=== PATIENT | male | born 1950 | race African-American/Black ===

== ENCOUNTER 2017-04-20 06:05 | Day surgery (SDC) | payer OTHER ==
[2017-04-18 13:22] VITALS: BMI 25.0
--- NOTE | 2017-04-20 08:13 | HP ---
History & Physical Update - History History: No Change - Physical Physical: No Change - Assessment Assessment: No Change - Plan Plan: No Change
[2017-04-20] MEDS ORDERED: MIDAZOLAM HCL 2 MG/2 ML SINGLE DOSE VIAL ONE (08:17)
[2017-04-20] MEDS ORDERED: LIDOCAINE HCL/PF 2% SDV 5ML VIAL ONE (08:20)
[2017-04-20] MEDS ORDERED: ROCURONIUM BROMIDE 50 MG/5 ML VIAL ONE (08:20)
[2017-04-20] MEDS ORDERED: PROPOFOL 20 ML ONE (08:20)
[2017-04-20] MEDS ORDERED: ceFAZolin SODIUM 1 GM VIAL IVPB ONE (08:23)
[2017-04-20] MEDS ORDERED: ceFAZolin SODIUM 1 GM VIAL ONE (08:35)
[2017-04-20] MEDS ORDERED: BUPIVACAINE HCL/PF 0.5% (5MG/ML) 10 ML VIAL ONE (08:38)
[2017-04-20] MEDS ORDERED: DEXAMETHASONE SOD PHOSPHATE 4 MG/1 ML VIAL ONE (08:39)
[2017-04-20] MEDS ORDERED: KETOROLAC TROMETHAMINE 30 MG/1 ML VIAL ONE (08:39)
[2017-04-20] MEDS ORDERED: LIDOCAINE HCL 2% JELLY (5 ML/TUBE) ONE (08:39)
[2017-04-20] MEDS ORDERED: BUPIVACAINE HCL/PF 0.5% (5MG/ML) 10 ML VIAL IJ ONE (08:47)
[2017-04-20] MEDS ORDERED: ONDANSETRON 4 MG/2 ML VIAL IVPUSH PRN (10:12)
[2017-04-20] MEDS ORDERED: oxyCODONE HCL 5 MG TABLET PO PRN (10:12)
[2017-04-20] MEDS ORDERED: PROMETHAZINE HCL 25 MG/1 ML VIAL IVPUSH PRN (10:12)
[2017-04-20] MEDS ORDERED: LACTATED RINGERS SOLUTION 1,000 ML IV SCH (10:15)
--- NOTE | 2017-04-20 12:34 | OP ---
Operative Note - Note: Operative Date: 04/20/17 Pre-Operative Diagnosis: VENTRAL HERNIA Operation: ROBOTIC VENTRAL HERNIA REPAIR WITH MESH Findings: UMBILICAL AND INFRAUMBILICAL HERNIAS Post-Operative Diagnosis: Other (MULTIPLE VENTRAL HERNIAS) Surgeon: Cuco Lynn Rose Grading Supervisor: Rupal Shearer Anesthesia: General Estimated Blood Loss (mls): 3 Operative Report Dictated: Yes
--- NOTE | 2017-04-20 13:28 | OP ---
DATE OF OPERATION: 04/20/2017 PROCEDURE: Robotic-assisted laparoscopic ventral hernia repair with mesh. PREOPERATIVE DIAGNOSIS: Ventral hernia. POSTOPERATIVE DIAGNOSIS: Umbilical and infraumbilical hernias with diastasis recti. SURGEON: Cuco Lynn MD HAND UMBRELLA TIPPER: HEIDY Robertson ANESTHESIA: General endotracheal. FINDINGS AND PROCEDURE: This is a 66-year-old male who presented initially with abdominal discomfort and bulging of the upper supraumbilical midline 1 year prior. At that time, on physical exam patient was only deemed to have diastasis recti. However, the following year patient returned for reevaluation of the abdominal bulge. This time, patient has a supraumbilical defect with larger diastasis recti, so patient was advised robotic or minimally invasive hernia repair. Consent was obtained after discussing the risks, benefits, and alternatives to the procedure. Patient was brought to the operating room and placed in supine position. General endotracheal anesthesia was administered. A roll was placed under the patient' s left flank and the left arm was tucked to the side. The abdomen was prepped and draped in the usual sterile fashion. Using 0.5% Marcaine, local anesthesia was administered to the proposed incision site. The peritoneal cavity was entered using the Veress needle technique via an 8-mm left subcostal incision behind the anterior axillary line. Pneumoperitoneum was established. An 8-mm port was inserted into the subcostal incision. Then, the 3D 30-degree laparoscope was inserted and the peritoneal cavity was carefully inspected. It was noted to be free of inadvertent injury. The posterior abdominal wall was inspected and was noted to have umbilical hernia and supraumbilical diastasis recti. Two 8-mm ports were inserted at the left flank and the anterior axillary line 8 mm away from each other, 1 at the level of the umbilicus and 1 at the left lower quadrant. The 3D scope was then positioned and transferred to the middle port. The target organ was set and the robotic arms were docked. The fenestrated bipolar was placed into the left lower quadrant port and the EndoWrist ursula was connected to monopolar cautery, was inserted in the left subcostal port. The undersigned then scrubbed out to commence the console part of the procedure. The parietal peritoneum which was about 7 mm wide was scored and a preperitoneal pocket was created. This pocket was about 14 x 8 mm in size. This was done using the bipolar for traction and the EndoWrist ursula for the sharp dissection. The hernia sac was also reduced from the umbilical hernia. The umbilical hernia was about 3 cm in its widest diameter. The dissection was initially carried up towards the falciform ligament and down towards the linea semicircularis. During the process of the dissection, 2 small infraumbilical defects were noted, 1 about 2 cm from the umbilicus and 1 larger which was about 2 cm, about 4 cm below the umbilicus containing preperitoneal fat. The defects were closed with continuous V-Loc No. 1 nonabsorbable sutures, also partially apposing the diastasis recti in the epigastric region. After the primary closure was deemed satisfactory, an 8 x 12-cm ProGrip mesh was self-anchored to the posterior abdominal wall, covering all the hernia defects. The parietal peritoneum was then tucked back to the posterior abdominal wall with running V-Loc 2-0 absorbable sutures. The midline defect was also closed with 1 figure-of-8 V-Loc 2-0 suture. After the procedure was deemed satisfactory, the sutures with their needles were removed. The 2-0 V-Loc absorbable suture needle was noted to have been dislodged. Initial search for the needle proved to be futile. An x-ray of the abdomen showed that the needle was noted to be in the right lower quadrant, so the robotic arms were undocked and now the left subcostal port was changed to an 11-mm port. Search of the needle again was done at the right lower quadrant and this time the needle was found. The needle was then grasped with the needle cart driver and extracted via the larger left subcostal port. This then ended the entire procedure. The pneumoperitoneum was evacuated and the ports were removed. The wounds were closed with subcuticular Biosyn 4-0 sutures reinforced with Dermabond. The patient was successfully extubated and transferred to the postanesthesia care unit in satisfactory condition. Estimated blood loss was about 3 mL. Wound class clean. The patient received 2 g of Ancef prior to the start of the procedure. Dora [id number] [facility]
[2017-04-20 15:09] VITALS: TEMP 98.1
[2017-04-20 16:20] VITALS: BP 130/80; PULSE 88
--- NOTE | 2017-04-20 17:11 | SURG ---
Surgery Shuttle Threader Note Shuttle Threader: Rupal Shearer PA-C Date of Service: 04/20/17 Diagnosis: VENTRAL HERNIA Procedure: ROBOTIC VENTRAL HERNIA REPAIR WITH MESH I was present for the entirety of the operative procedure. For further detail, please refer to operative report. Visit type - Case Type Case Type: Scheduled Admission - Emergency Emergency Visit: No - New patient This patient is new to me today: Yes Date on this admission: 04/20/17 - Critical Care Critical Care patient: No
== END 2017-04-20 16:19 | disposition home or self-care (01) ==
LOC: JASU-SURG 06:05
PROVIDERS: ATTEND Surgery
PROC: 8E0W4CZ Robotic Assisted Procedure of Trunk Region, Percutaneous Endoscopic Approach (ICD-10-PCS; 2017-04-20)
PROC: 0WUF4JZ Supplement Abdominal Wall with Synthetic Substitute, Percutaneous Endoscopic Approach (ICD-10-PCS; principal; 2017-04-20 08:00)
DX: K43.9 Ventral hernia without obstruction or gangrene (principal); Q79.59 Other congenital malformations of abdominal wall
CPT/HCPCS: 49652; S2900; 74000-TC; 74190-TC; 76000-TC; 94760

== ENCOUNTER 2020-04-13 10:36 | Observation (INO) | payer OTHER ==
--- NOTE | 2020-04-13 11:08 | PDOC ---
History of Present Illness - General Chief Complaint: Chest Pain Stated Complaint: CHEST PAIN Time Seen by Provider: 04/13/20 11:07 - History of Present Illness Initial Comments: 69 YOM w/ htn presents with chest pain for 3 days. Patient reports pain is located over left chest, 7-9/10 in intensity, squeezing in quality, no radiat ion, nothing makes it better or worse, took baby aspirin for it last night without improvement, never had pain like this before. Endorses nausea, attempting to vomit, denies fever, chills, recent travel. Denies SOB. 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 Constitutional: No Weight Change, No Fever, No Chills, No Night Sweats, No Fatigue, No Malaise ENT/Mouth: No Hearing Changes, No Ear Pain, No Nasal Congestion, No Sinus Pain, No Hoarseness, No sore throat, No Rhinorrhea, No Swallowing Difficulty Eyes: No Eye Pain, No Swelling, No Redness, No Foreign Body, No Discharge, No Vision Changes Cardiovascular: No Chest Pain, No SOB, No PND, No Dyspnea on Exertion, No Orthopnea, No Claudication, No Edema, No Palpitations Respiratory: No Cough, No Sputum, No Wheezing, No Smoke Exposure, No Dyspnea Gastrointestinal: No Nausea, No Vomiting, No Diarrhea, No Constipation, No Pain, No Heartburn, No Anorexia, No Dysphagia, No Hematochezia, No Melena, No Flatulence, No Jaundice Genitourinary: No Dysmenorrhea, No DUB, No Dyspareunia, No Dysuria, No Urinary Frequency, No Hematuria, No Urinary Incontinence, No Urgency, No Flank Pain, No Urinary Flow Changes, No Hesitancy Musculoskeletal: No Arthralgias, No Myalgias, No Joint Swelling, No Joint Stiffness, No Back Pain, No Neck Pain, No Injury History Skin: No Skin Lesions, No Pruritis, No Hair Changes, No Breast/Skin Changes, No Nipple Discharge Neuro: No Weakness, No Numbness, No Paresthesias, No Loss of Consciousness, No Syncope, No Dizziness, No Headache, No Coordination Changes, No Recent Falls Psych: No Anxiety/Panic, No Depression, No Insomnia, No Personality Changes, No Delusions, No Rumination, No SI/HI/AH/VH, No Social Issues, No Memory Changes, No Violence/Abuse Hx., No Eating Concerns Heme/Lymph: No Bruising, No Bleeding, No Transfusions History, No Lymphadenopathy Endocrine: No Polyuria, No Polydipsia, No Temperature Intolerance 04/13/20 11:46 04/13/20 11:49 Past History - Medical History Allergies/Adverse Reactions: Allergies Allergy/AdvReac Type Severity Reaction Status Date / Time No Known Allergies Allergy Verified 04/13/20 10:41 Home Medications: Ambulatory Orders Lisinopril 10 mg PO DAILY 04/13/20 Aspirin [ASA -] 81 mg PO DAILY #30 tab.chew 04/15/20 Lisinopril [Prinivil] 10 mg PO DAILY tablet 04/15/20 Anemia: No Asthma: No Cancer: No Cardiac Disorders: No CVA: No COPD: No CHF: No Dementia: No Diabetes: No GI Disorders: No Disorders: Yes HTN: Yes Hypercholesterolemia: No Liver Disease: No Seizures: No Thyroid Disease: No - Immunization History Immunization Up to Date: Yes - Psycho-Social/Smoking History Smoking History: Never smoked Have you smoked in the past 12 months: No - Substance Abuse Hx (Audit-C & DAST Scrn) How often the patient has a drink containing alcohol: Never Score: In Men: 4 or > Positive; In Women: 3 or > Positive: 0 Screen Result (Pos requires Nsg. Audit-10AR): Negative In the last yr the pt used illegal drug/Rx for NonMed reason: No Score: Yes response is considered Positive: 0 Screen Result (Positive result requires Nsg. DAST-10): Negative *Physical Exam - Vital Signs Last Vital Signs Temp Pulse Resp BP Pulse Ox 97.6 F 75 20 130/76 100 04/13/20 10:41 04/13/20 10:41 04/13/20 10:41 04/13/20 10:41 04/13/20 10:41 - Physical Exam General Appearance: Yes: Nourished, Appropriately Dressed, Mild Distress HEENT: positive: EOMI, JUNI, Normal ENT Inspection, Normal Voice, Symmetrical, TMs Normal, Pharynx Normal, Other (patient has decreased visual acuity bilaterally) Neck: positive: Trachea midline, Normal Thyroid Respiratory/Chest: positive: Lungs Clear, Normal Breath Sounds Cardiovascular: positive: Regular Rhythm, Regular Rate, S1, S2 Gastrointestinal/Abdominal: positive: Normal Bowel Sounds, Tender, Flat, Soft, Tenderness (patient has ttp in epigastrum) Musculoskeletal: positive: Normal Inspection, CVA Tenderness Extremity: positive: Normal Capillary Refill Integumentary: positive: Normal Color, Dry, Warm 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: 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: 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 NML intact, Fully Oriented, Alert, Normal Mood/Affect, Normal Response, Motor Strength 11/10 ED Treatment Course - LABORATORY CBC & Chemistry Diagram: 04/14/20 06:30 04/14/20 06:30 Medical Decision Making - Medical Decision Making 69 YOM with htn new onset chest pain - vitals on arrival are wnl - exam reveals ttp in epigastrum, cp not reproducible - ddx: acs, pneumonia, covid, pancreatitis - plan: CBC, CMP, cardiac profile, ekg, cxr, 81 mg aspirin, reassess reassess - troponin 1 negative - cxr negative 04/13/20 13:00 04/13/20 17:06 Troponin 2 negative Given nature of patients chest pain, and first time, and risk factors will admit for tele. Heart Score is 4 Discharge - Discharge Information Problems reviewed: Yes Clinical Impression/Diagnosis: Chest pain Qualifiers: Chest pain type: unspecified Qualified Code(s): R07.9 - Chest pain, unspecified Condition: Good Disposition: HOME - Follow up/Referral - Patient Discharge Instructions - Post Discharge Activity
--- NOTE | 2020-04-13 11:23 | PDOC ---
Attending Attestation - Resident Resident Name: Khanh Amaral - ED Attending Attestation I have performed the following: I have examined & evaluated the patient, The case was reviewed & discussed with the resident, I agree w/resident's findings & plan, Exceptions are as noted - HPI HPI: 69 yo M history HTN presents with 3 day history of intermittent L-sided chest pain, nonradiating. Describes pain as squeezing. It waxes and wanes, currently pain-free. Denies SOB, cough, fever, vomiting. +Nausea. 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 - Physicial Exam PE: GENERAL: Awake, alert, and fully oriented, in no acute distress HEAD: No signs of trauma EYES: PERRLA, EOMI, sclera anicteric, conjunctiva clear ENT: Auricles normal inspection, hearing grossly normal, nares patent, oropharynx clear without exudates. Moist mucosa NECK: Normal ROM, supple, no lymphadenopathy, JVD, or masses LUNGS: Breath sounds equal, clear to auscultation bilaterally. No wheezes, and no crackles HEART: Regular rate and rhythm, normal S1 and S2, no murmurs, rubs or gallops ABDOMEN: Soft, +distension, nontender, normoactive bowel sounds. No guarding, no rebound. No masses EXTREMITIES: Normal range of motion, no edema. No clubbing or cyanosis. No cords, erythema, or tenderness NEUROLOGICAL: Cranial nerves II through XII grossly intact. Normal speech, normal gait. Motor and sensation intact SKIN: Warm, dry, normal turgor, no rashes or lesions noted. - Medical Decision Making Pt with L-sided chest pain, with cardiac risk factors. Will send labs, get CXR. Likely admission. Heart Score/ECG Review - ECG Impressions Comment:: EKG read 11:02- NSR 79 bpm, no acute ST/T changes Discharge - Discharge Information Problems reviewed: Yes Clinical Impression/Diagnosis: Chest pain Qualifiers: Chest pain type: unspecified Qualified Code(s): R07.9 - Chest pain, unspecified Condition: Stable - Follow up/Referral - Patient Discharge Instructions - Post Discharge Activity
[2020-04-13] MEDS ORDERED: ASPIRIN 81 MG CHEWABLE TABLETS PO STA (11:48)
[2020-04-13] MEDS ORDERED: ASPIRIN 81 MG CHEWABLE TABLETS ONE (11:56)
[2020-04-13 12:08] LABS: BASO % 0.6 % (0-2.0); EOS % 6.4 % (0-4.5); HEMATOCRIT 35.8 % (35.4-49); HEMOGLOBIN 11.9 GM/dL (11.7-16.9); LYMPH % 28.3 % (8-40); MCH 25.2 pg (25.7-33.7); MCHC 33.3 g/dl (32.0-35.9); MEAN CELL VOLUME 75.7 fl (80-96); MONO % 9.9 % (3.8-10.2); NEUT % 54.8 % (42.8-82.8); PLATELET COUNT 286 K/MM3 (134-434); RBC 4.73 M/mm3 (4.00-5.60); RDW 15.3 % (11.9-15.9); WHITE BLOOD COUNT 5.4 K/mm3 (4.0-10.0)
[2020-04-13 12:40] LABS: ALBUMIN 3.6 g/dl (3.4-5.0); ALK PHOS 62 U/L (45-117); ANION GAP 4 MMOL/L (8-16); BILIRUBIN,TOTAL 0.3 mg/dL (0.2-1); CALCIUM 8.5 mg/dL (8.5-10.1); CHLORIDE 111 mmol/L (98-107); CO2 29 mmol/L (21-32); CREATININE 1.7 mg/dL (0.55-1.3); GLUCOSE,RANDOM 92 mg/dL (74-106); LIPASE 169 U/L (73-393); POTASSIUM 4.5 mmol/L (3.5-5.1); SGOT/AST 19 U/L (15-37); SGPT/ALT 18 U/L (13-61); SODIUM 144 mmol/L (136-145); TOT PROT 6.8 g/dl (6.4-8.2)
--- NOTE | 2020-04-13 13:39 | EKG ---
Test Reason : Blood Pressure : / mmHG Vent. Rate : 079 BPM Atrial Rate : 079 BPM P-R Int : 170 ms QRS Dur : 092 ms QT Int : 402 ms P-R-T Axes : 042 013 017 degrees QTc Int : 460 ms NORMAL SINUS RHYTHM NORMAL ECG NO PREVIOUS ECGS AVAILABLE Confirmed by Ata Newberry MD ([id number]) on 04/13/2020 1:39:08 PM Referred By: Confirmed By:Ata Newberry MD
--- OUTSIDE RECORDS SUMMARY | 2020-04-13 18:48 | XMS ---
:1950 Author Organization [facility] Support Name Relationship Address Phone KERLINE Unavailable [address] [place] [address] CAROLINA SORTO DAUGHTER [address] [place] [address] Re-disclosure Warning The records that you are about to access may contain information from federally- assisted alcohol or drug abuse programs. If such information is present, then the following federally mandated warning applies: This information has been disclosed to you from records protected by federal confidentiality rules (42 CFR part 2). The federal rules prohibit you from making any further disclosure of this information unless further disclosure is expressly permitted by the written consent of the person to whom it pertains or as otherwise permitted by 42 CFR part 2. A general authorization for the release of medical or other information is NOT sufficient for this purpose. The Federal rules restrict any use of the information to criminally investigate or prosecute any alcohol or drug abuse patient.The records that you are about to access may contain highly sensitive health information, the redisclosure of which is protected by Article 27-F of the [facility] Public Health law. If you continue you may haveaccess to information: Regarding HIV / AIDS; Provided by facilities licensed or operated by the [facility] Office of Mental Health; or Provided by the [facility] Office for People With Developmental Disabilities. If such information is present, then the following [facility] mandated warning applies: This information has been disclosed to you from confidential records which are protected by state law. State law prohibits you from making any further disclosure of this information without the specific written consent of the person to whom it pertains, or as otherwise permitted by law. Any unauthorized further disclosure in violation of state law may result in a fine or usp sentence or both. A general authorization for the release of medical or other information is NOT sufficient authorization for further disclosure. Insurance Providers Payer name Policy type Policy ID Covered Covered alliance party's Policy P ariel / Coverage alliance party ID relationship to Haddad Inf ormation type haddad MEDICARE [id number] SP [id number] [employer] HMO [id number] SP [id number] Results ID Date Data Source [id number] 12/24/2019 12:00:00 AM EDT [facility] Name Value Range Interpretation Code Description Data Kari rce(s) Supporting Document(s ) 2018-nCoV [facility] RNA XXX JAEL+probe- Imp This lab was ordered by [facility] and reported by [employer]. ID Date Data Source [id number] 11/24/2019 12:00:00 AM EDT [facility] Name Value Range Interpretation Code Description Data Kari rce(s) Supporting Document(s ) 2018-nCoV [facility] RNA XXX JAEL+probe- Imp This lab was ordered by [facility] and reported by [employer] Procedure
[2020-04-13 19:54] LABS: URINE APPEARANCE CLEAR; URINE BILIRUBIN NEGATIVE (NEGATIVE); URINE COLOR YELLOW; URINE GLUCOSE (UA) NEGATIVE (NEGATIVE); URINE KETONE NEGATIVE (NEGATIVE); URINE LEUK ESTERASE NEGATIVE (NEGATIVE); URINE NITRITE NEGATIVE (NEGATIVE); URINE PROTEIN NEGATIVE (NEGATIVE); URINE UROBILINOGEN 0.2 mg/dL (0.2-1.0)
[2020-04-14 04:54] VITALS: BMI 24.2
[2020-04-14 07:38] LABS: HEMATOCRIT 38.2 % (35.4-49); HEMOGLOBIN 12.7 GM/dL (11.7-16.9); MCH 25.2 pg (25.7-33.7); MCHC 33.3 g/dl (32.0-35.9); MEAN CELL VOLUME 75.9 fl (80-96); PLATELET COUNT 298 K/MM3 (134-434); RBC 5.04 M/mm3 (4.00-5.60); RDW 15.4 % (11.9-15.9); WHITE BLOOD COUNT 5.3 K/mm3 (4.0-10.0)
[2020-04-14 07:48] LABS: ALBUMIN 3.9 g/dl (3.4-5.0); BILIRUBIN,TOTAL 0.5 mg/dL (0.2-1); BLOOD UREA NITROGEN 12.6 mg/dL (7-18); CALCIUM 9.1 mg/dL (8.5-10.1); CREATININE 1.4 mg/dL (0.55-1.3); TOT PROT 7.3 g/dl (6.4-8.2)
--- NOTE | 2020-04-14 10:18 | CON.CARD ---
Consult Consult Specialty:: Cardiology - History of Present Illness History of Present Illness: 69 YOM w/ htn presents with chest pain for 3 days. Patient reports pain is located over left chest, 7-9/10 in intensity, squeezing in quality, no radiation, nothing makes it better or worse, took baby aspirin for it last night without improvement, never had pain like this before. Endorses nausea, attempting to vomit, denies fever, chills, recent travel. Denies SOB. 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 - History Source History Provided By: Patient, Medical Record - Alcohol/Substance Use Hx Alcohol Use: Yes (occas) - Smoking History Smoking history: Never smoked Have you smoked in the past 12 months: No Home Medications - Allergies Allergies/Adverse Reactions: Allergies Allergy/AdvReac Type Severity Reaction Status Date / Time No Known Allergies Allergy Verified 04/13/20 10:41 - Home Medications Home Medications: Ambulatory Orders Lisinopril 10 mg PO DAILY 04/13/20 Review of Systems - Review of Systems Constitutional: reports: No Symptoms Eyes: reports: No Symptoms HENT: reports: No Symptoms Neck: reports: No Symptoms Cardiovascular: reports: Chest Pain Respiratory: reports: No Symptoms Gastrointestinal: reports: No Symptoms Genitourinary: reports: No Symptoms Breasts: reports: No Symptoms Reported Musculoskeletal: reports: No Symptoms Integumentary: reports: No Symptoms Neurological: reports: No Symptoms Endocrine: reports: No Symptoms Hematology/Lymphatic: reports: No Symptoms Psychiatric: reports: No Symptoms Vital Signs: Vital Signs Temperature 98.1 F 04/14/20 04:30 Pulse Rate 60 04/14/20 08:56 Respiratory Rate 16 04/14/20 08:56 Blood Pressure 141/88 04/14/20 08:56 O2 Sat by Pulse Oximetry (%) 96 04/14/20 08:56 Constitutional: Yes: Well Nourished, No Distress, Calm Eyes: Yes: WNL, Conjunctiva Clear, EOM Intact HENT: Yes: WNL, Atraumatic, Normocephalic Neck: Yes: WNL, Supple, Trachea Midline Respiratory: Yes: WNL, Regular, CTA Bilaterally Gastrointestinal: Yes: WNL, Normal Bowel Sounds Renal/: Yes: WNL Cardiovascular: Yes: WNL, Regular Rate and Rhythm Musculoskeletal: Yes: WNL Extremities: Yes: WNL Integumentary: Yes: WNL Neurological: Yes: WNL, Alert, Oriented ...Motor Strength: WNL Psychiatric: Yes: WNL, Alert, Oriented - Other Data Labs, Other Data: CBC, BMP 04/14/20 06:30 04/14/20 06:30 Troponin, BNP 04/13/20 04/13/20 11:27 15:10 Troponin I < 0.02 < 0.02 Troponin, BNP 04/13/20 04/13/20 11:27 15:10 Troponin I < 0.02 < 0.02 Imaging - Results Chest X-ray: Image Reviewed (no i/e) EKG: Image Reviewed (sr wnl) Problem List - Problems (1) Chest pain Code(s): R07.9 - CHEST PAIN, UNSPECIFIED Qualifiers: Chest pain type: unspecified Qualified Code(s): R07.9 - Chest pain, unspecified Assessment/Plan 69 YOM w/ htn presents with chest pain for 3 days. Patient reports pain is located over left chest, 7-9/10 in intensity, squeezing in quality, no radiation, nothing makes it better or worse, took baby aspirin for it last night without improvement, never had pain like this before. Family hx CVA (brother in his 50s); pt does not know medical hx of lizz parents. HTN; now on lisinopril ECHO: normal LVEF; mild-moderate aortic regurgitation (AR) TNI < 0.02 x 2. TSH and lipid panel pending Rec: Control BP (pt reports being on nifedipine and ?metoprolol at home). F/u Lipids and TSH. Stress treadmill MIBI (pt reports having had non-nuclear stress test ? 2 yrs ago that was negative for ischemia). cc time 70 min
[2020-04-14] MEDS: LISINOPRIL 10 MG TABLET PO SCH (11:35)
--- NOTE | 2020-04-14 13:03 | ECHO ---
Version: 1 Name: CORAL SORTO Exam: Adult Echocardiogram Study Date: 04/14/2020, 11:50 AM Age: 69 Years MMode/2D Measurements & Calculations IVSd: 1.05 cm LVIDs: 2.9 cm LVIDd: 4.0 cm LVPWd: 1.08 cm ACS: 1.75 cm Ao root diam: 3.7 cm LVOT diam: 2.03 cm LA dimension: 2.8 cm Doppler Measurements & Calculations MV E max tyshawn: 41.5 cm/sec Med E/e': 7.9 MV A max tyshawn: 58.2 cm/sec Med Peak E' Tyshawn: 5.3 cm/sec MV E/A: 0.71 Lat E/e': 4.6 Lat Peak E' Tyshawn: 9.0 cm/sec Ao max P.0 mmHg NOEMY(I,D): 1.77 cm Ao mean P.8 mmHg LV V1 mean: 47.1 cm/sec Ao V2 max: 111.3 cm/sec LV V1 mean P.05 mmHg AI P1/2t: 779.9 msec TR max tyshawn: 190.7 cm/sec TR max P.6 mmHg Left Ventricle The left ventricular size, thickness and function are normal. Ejection Fraction = 65%. The transmitr al spectral Doppler flow pattern is suggestive of impaired LV relaxation. Right Ventricle The right ventricle is normal in size and function. Atria Normal left and right atrial size and function. Mitral Valve There is mild mitral annular calcification. There is trace mitral regurgitation. Tricuspid Valve The tricuspid valve is not well visualized, but is grossly normal. There is trace tricuspid regurgit ation. There was insufficient TR detected to calculate RV systolic pressure. Aortic Valve There is mild to moderate aortic sclerosis.;. No hemodynamically significant valvular aortic stenosi s. Mild to moderate aortic regurgitation. Pulmonic Valve The pulmonic valve is not well visualized. Great Vessels The aortic root is normal size. Pericardium/Pleura There is no pericardial effusion. Tech Comments TDS due to orientation of patient's heart. Patient thin and scanned supine. Summary Statements The left ventricular size, thickness and function are normal. The right ventricle is normal in size and function. Normal left and right atrial size and function. There is mild to moderate aortic sclerosis.; No hemodynamically significant valvular aortic stenosis . Mild to moderate aortic regurgitation. There is mild mitral annular calcification. There is trace mitral regurgitation. 04/14/2020, 1:02 MD Helga Farrell PM Ordering Physician: Denice Lanier Referring Physician: DENICE LANIER Performed By: Manjula Patel
--- NOTE | 2020-04-14 18:26 | HP ---
Admitting History and Physical - Smoking History Smoking history: Never smoked Have you smoked in the past 12 months: No - Alcohol/Substance Use Hx Alcohol Use: Yes (occas) Home Medications - Allergies Allergies/Adverse Reactions: Allergies Allergy/AdvReac Type Severity Reaction Status Date / Time No Known Allergies Allergy Verified 04/13/20 10:41 - Home Medications Home Medications: Ambulatory Orders Lisinopril 10 mg PO DAILY 04/13/20 Physical Examination Vital Signs: Vital Signs Temperature 98.6 F 04/14/20 14:02 Pulse Rate 64 04/14/20 14:02 Respiratory Rate 16 04/14/20 14:02 Blood Pressure 133/87 04/14/20 14:02 O2 Sat by Pulse Oximetry (%) 96 04/14/20 08:00 Labs: CBC, BMP 04/14/20 06:30 04/14/20 06:30 Problem List - Problems (1) Chest pain Assessment/Plan: CPK/troponin have been negative Check echo As per cardio ?stress test in am Code(s): R07.9 - CHEST PAIN, UNSPECIFIED Qualifiers: Chest pain type: unspecified Qualified Code(s): R07.9 - Chest pain, unspecified (2) HTN (hypertension) Assessment/Plan: Cont asa/lisinopril Code(s): I10 - ESSENTIAL (PRIMARY) HYPERTENSION
--- NOTE | 2020-04-15 07:28 | PN ---
Progress Note, Physician Chief Complaint: Pt A&ox3; asymptomatic presently History of Present Illness: Mr. Rand is a 69 YO black man w PMHx of HTN (on nifedipine and ? metoprolol at home), anxiety/?depression, who presents with chest pain for 3 days. Patient reports pain is located over left chest, 7-9/10 in intensity, squeezing in quality, no radiation, nothing makes it better or worse; lasted several minutes. He took baby aspirin for it the night before admission without improvement, never had pain like this before. Endorses nausea, attempting to vomit, denies fever, chills, recent travel. Denies SOB. 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 Never smoked cigarettes. Family Hx: brother had CVA in his 50s; pt does not know health of his parents. s/p renal stone extraction s/p abdominal hernia surgery 2019; still feels pain in abdominal area. Pt states he had stress test (EST) negative for ischemia in PMDs office about 2 years ago. 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 PMD: Camacho Lowry - Current Medication List Current Medications: Active Medications Aspirin (Asa -) 81 mg PO DAILY [facility] Lisinopril (Prinivil) 10 mg PO DAILY [facility] Last Admin: 04/14/20 11:35 Dose: 10 mg Documented by: - Objective Vital Signs: Vital Signs Temperature 98.3 F 04/15/20 06:00 Pulse Rate 53 L 04/15/20 06:00 Respiratory Rate 10 04/15/20 06:00 Blood Pressure 112/80 04/15/20 06:00 O2 Sat by Pulse Oximetry (%) 99 04/14/20 22:00 Constitutional: Yes: Calm Eyes: Yes: WNL HENT: Yes: WNL Neck: Yes: WNL Cardiovascular: Yes: Murmur (2/4 diastolic murmur, RSB-->base), S1, S2 Labs: CBC, BMP 04/14/20 06:30 04/14/20 06:30 Assessment/Plan 69 YOM w/ htn presents with chest pain for 3 days. Patient reports pain is located over left chest, 7-9/10 in intensity, squeezing in quality, no radiation, nothing makes it better or worse, took baby aspirin for it last night without improvement, never had pain like this before. Family hx CVA (brother in his 50s); pt does not know medical hx of lizz parents. HTN; now on lisinopril ECHO: normal LVEF; mild-moderate aortic regurgitation (AR) TNI < 0.02 x 2. TSH and lipid panel pending Rec: Control BP (pt reports being on nifedipine and ?metoprolol at home). F/u Lipids and TSH. Stress treadmill MIBI (pt reports having had non-nuclear stress test ? 2 yrs ago that was negative for ischemia).
[2020-04-15 08:54] VITALS: BP 151/91
[2020-04-15] MEDS: LISINOPRIL 10 MG TABLET PO SCH (09:02)
[2020-04-15] MEDS ORDERED: ASPIRIN 81 MG CHEWABLE TABLETS PO SCH (10:00)
[2020-04-15 14:54] VITALS: PULSE 83; TEMP 97.4
== END 2020-04-15 17:00 | disposition home or self-care (01) ==
LOC: JER 10:36 → JERBED 16:49 → JICU 04-14 04:30
PROVIDERS: ADMIT Internal Medicine; ATTEND Internal Medicine
DX: R07.9 Chest pain, unspecified (principal); I10 Essential (primary) hypertension
CPT/HCPCS: 36415; 71045-TC-FY; 74176-TC; 78452-TC; 80053; 80061; 81003; 82550; 83690; 83721; 84443; 84484; 85025; 85027; 93005; 93010; 93017; 93306-TC; 99285-25; A9502; C9803; G0378; Q9967; U0003

== ENCOUNTER 2023-12-22 17:24 | Emergency (ER) | payer OTHER ==
[2023-12-22 17:29] VITALS: BP 152/81; PULSE 68; RESP 16; TEMP 98.6; BMI 24.0
[2023-12-22 18:39] LABS: BASO % 0.7 % (0-2.0); EOS % 7.2 % (0-4.5); HEMATOCRIT 35.7 % (35.4-49); HEMOGLOBIN 11.6 GM/dL (11.7-16.9); MCH 24.9 pg (25.7-33.7); MCHC 32.5 g/dl (32.0-35.9); MEAN CELL VOLUME 76.5 fl (80-96); MEAN PLT VOLUME 7.6 fl (7.5-11.1); MONO % 8.2 % (3.8-10.2); NEUT % 58.9 % (42.8-82.8); PLATELET COUNT 286 10^3/uL (134-434); RBC 4.68 M/mm3 (4.00-5.60); RDW 15.6 % (11.9-15.9); WHITE BLOOD COUNT 5.9 K/mm3 (4.0-10.0)
[2023-12-22 18:47] LABS: INR 1.03 (0.83-1.09); PROTHROMBIN TIME (PATIENT) 11.6 SEC (9.7-13.0)
[2023-12-22 18:49] LABS: ACTIVATED PTT 29.6 SECONDS (25.2-36.5)
[2023-12-22 18:50] LABS: POTASSIUM 4.1 mmol/L (3.5-5.1)
[2023-12-22 18:52] LABS: CALCIUM 9.1 mg/dL (8.5-10.1)
[2023-12-22 18:53] LABS: ALBUMIN 4.1 g/dl (3.4-5.0); BLOOD UREA NITROGEN 12.1 mg/dL (7-18); MAGNESIUM 2.4 mg/dL (1.8-2.4)
[2023-12-22 18:56] LABS: CREATININE 1.5 mg/dL (0.55-1.3)
[2023-12-22 18:57] LABS: BILIRUBIN,TOTAL 0.7 mg/dL (0.2-1)
[2023-12-22 18:58] LABS: TOT PROT 7.1 g/dl (6.4-8.2)
[2023-12-22 19:01] LABS: N-TERMINAL BNP 60.9 pg/ml (5-125)
[2023-12-22 19:45] LABS: EPI CELLS 2 /uL (0-25.1); HYALINE CASTS 0 /uL (0-3.1); PH,URINE 6.5 (5.0-8.0); URINE APPEARANCE CLEAR; URINE BACTERIA 0 /uL (0-1359); URINE BILIRUBIN NEGATIVE (NEGATIVE); URINE COLOR YELLOW; URINE GLUCOSE (UA) NEGATIVE (NEGATIVE); URINE KETONE NEGATIVE (NEGATIVE); URINE LEUK ESTERASE TRACE (NEGATIVE); URINE NITRITE NEGATIVE (NEGATIVE); URINE PROTEIN NEGATIVE (NEGATIVE); URINE RBC 8 /uL (0-23.9); URINE UROBILINOGEN 0.2 mg/dL (0.2-1.0); URINE WBC 57 /uL (0-25.8)
== END 2023-12-22 19:55 | disposition home or self-care (01) ==
LOC: JER 17:24
DX: R60.0 Localized edema (principal)
CPT/HCPCS: 36415; 71046-TC-FY; 80053; 81003; 83735; 83880; 84484; 85025; 85610; 85730; 87086; 87186; 93005; 93010; 99285-25